=== PATIENT | female | born 2005 | race African-American/Black ===

== ENCOUNTER 2024-07-28 09:03 | Emergency (ER) | payer OTHER, SELFPAY ==
[2024-07-28 09:16] VITALS: BP 93/67; PULSE 67; RESP 16; TEMP 36; O2SAT 99
--- NOTE | 2024-07-28 09:40 | ED.ABDPAIN ---
HPI - Abdominal Pain General Chief Complaint: Abdominal Pain Stated Complaint: LEFT ABD PAIN Source: patient Mode of arrival: ambulatory Limitations: no limitations History of Present Illness HPI narrative: Patient presents for evaluation of left-sided abdominal pain. Symptom onset this morning upon waking for the day. She reports that the pain is sharp and stabbing. It radiates into the left lower back. She denies any nausea, vomiting, diarrhea constipation, urinary symptoms, vaginal bleeding or discharge. She was started on a new control on 07/15/2024. She does not consume ETOH. No history of similar symptoms. Related Data Home Medications Medication Instructions Recorded Confirmed norethindrone 1 mg-ethinyl 1 tablet PO DAILY 07/28/24 07/28/24 estradiol 10 mcg (24)-iron 10 mcg(2) tablet (Lo Loestrin Fe) Allergies Allergy/AdvReac Type Severity Reaction Status Date / Time No Known Allergies Allergy Verified 07/28/24 09:34 Review of Systems Review of Systems: CONSTITUTIONAL: Denies fever, chills, or sweats. EYES: Denies visual changes, redness, or discharge. ENT: Denies rhinorrhea, congestion, sore throat, or otalgia. CARDIOVASCULAR: Denies chest pain, palpitations, or edema. RESPIRATORY: Denies cough or dyspnea. GASTROINTESTINAL: reports left-sided abdominal pain. Denies nausea, vomiting, or diarrhea. GENITOURINARY: Denies dysuria or hematuria. SKIN: Denies rash or itching. MUSCULOSKELETAL: Denies back pain, joint pain, or myalgia. NEUROLOGIC: Denies headache, numbness, dizziness, or weakness. PSYCHIATRIC: Denies anxiety or depression. [facility] Past Medical History Medical History No pertinent past medical history Surgical History Surgical History No pertinent past surgical history Family History Family History Mother Family history non-contributory Social History Social History (Updated 07/28/24 @ 09:44 by SERJIO Ballard, ) Smoking status: Current every day smoker Tobacco type: e-cigarettes/vaping Alcohol intake: never Living arrangements: with family Gender identity (if verbalized by the patient): Female Spiritual care concerns: No Exam Narrative: GENERAL: Well-appearing, well-nourished, and in no acute distress. HEAD: Normocephalic, atraumatic. EYES: PERRLA and EOMI. ENT: Nares clear, no rhinorrhea or epistaxis. Mucous membranes moist. Oropharynx without tonsillar hypertrophy exudate or other lesions. Bilateral TMs pearly leong nonbulging NECK: Supple. No adenopathy or masses. No carotid bruits or JVD CHEST: Clear to auscultation. No respiratory distress. No wheezes rales or rhonchi HEART: Regular rate and rhythm. No murmur heard. Normal peripheral pulses. ABDOMEN: tenderness in the left upper quadrant without rebound or guarding. Soft, nondistended, normal active bowel sounds. EXTREMITIES: Normal range of motion. No edema. SKIN: Warm, dry, no rash. NEURO: No focal deficits. Alert and oriented x3. PSYCH: Normal mood and affect. Course Course Emergency Course: This is a 18-year-old female who presented for evaluation of abdominal pain. She was tender in LUQ. test here negative. She had some blood and protein in her urine. One consideration would be for kidney stones. I recommended she be transferred to the hospital for further evaluation. [facility] as her facility of choice. I contacted the emergency department at [place] and spoke with physician assistant food service director, Hunter London. who indicated the patient would be accepted for transfer into the ER at [place] by Dr. Stevens. Patient transferred via private vehicle Level of Care: Express Care Visit Vital Signs Vital signs: Vital Signs Temperature 36.0 C L 07/28/24 09:16 Pulse Rate 67 07/28/24 09:16 Respiratory Rate 16 07/28/24 09:16 Blood Pressure 93/67 L 07/28/24 09:16 Pulse Oximetry 99 07/28/24 09:16 Oxygen Delivery Room Air 07/28/24 09:16 Temperature 36.0 C L 07/28/24 09:16 Pulse Rate 67 07/28/24 09:16 Respiratory Rate 16 07/28/24 09:16 Blood Pressure 93/67 L 07/28/24 09:16 Pulse Oximetry 99 07/28/24 09:16 Oxygen Delivery Room Air 07/28/24 09:16 MDM - Abdominal Pain Lab Data Labs: Lab Results 07/28/24 07/28/24 Range/Units 09:47 09:48 POC Urine Color Yellow POC Urine Clarity Clear POC Urine pH 7.0 POC Ur Specif [place] 1.025 POC Urine Protein Trace (Negative) POC Ur Glucose (UA) Negative (Negative) POC Urine Ketones Negative (Negative) POC Urine Blood Trace (Negative) POC Urine Nitrite Negative (Negative) POC Urine Bilirubin Negative (Negative) POC Urine Urobilinogen 0.2 POC U Leukocyte Esteras Negative (Negative) POC Urine HCG, Qual Negative (Negative) Discharge Plan Discharge Clinical Impression: Abdominal pain Patient Disposition: Acute Care Hospital Condition: Stable Instructions: Abdominal Pain (ED) Patient Language: Armenian Prescriptions: No Action Lo Loestrin Fe 1 mg-10 mcg (24)/10 mcg (2) tablet 1 tablet PO DAILY Follow-up/Referrals: PHYSICIAN NOT ON STAFF,NONSTAFF [Primary Care Provider] - Time of Disposition: 10:07
[2024-07-28 09:51] LABS: BEDSIDEPREGUCG Negative (Negative)
[2024-07-28 09:51] LABS: EDUAAPPEAR Clear; EDUABILI Negative (Negative); EDUABLOOD Trace (Negative); EDUACOLOR1 Yellow; EDUAGLUCOSE Negative (Negative); EDUAKETONE Negative (Negative); EDUALEUKO Negative (Negative); EDUANITRATE Negative (Negative); EDUAPROTEIN Trace (Negative); EDUASPGRAVITY 1.025; EDUAUROBILI 0.2
== END 2024-07-28 10:21 | disposition short-term general hospital (02) ==
PROVIDERS: Emergency Provider Nurse Practitioner
DX: R10.32 Left lower quadrant pain (principal); F17.290 Nicotine dependence, other tobacco product, uncomplicated
CPT/HCPCS: 81003; 81025; 99202; G0463

== ENCOUNTER 2024-07-28 10:28 | Emergency (ER) | payer OTHER, SELFPAY ==
--- NOTE | ~2024-07-28 | CT_ITS ---
CT of the Abdomen and Pelvis: Indication: Abdominal pain Technique: 2.5 mm axial scans were obtained through the abdomen and pelvis following intravenous adm inistration of 100 cc of Omnipaque 350. Dose reduction technique was used on this scan by utilizing a utomated exposure control and iterative reconstruction technique. The dose-length product (DLP) was 1 87.80 mGy-cm. Findings: Scans through the lung bases are unremarkable. The liver, spleen, pancreas, gallbladder, adrenals and kidneys are within normal limits. No evidence of aortic aneurysm. No lymphadenopathy. No bowel obstruction or bowel wall thickening. There is no evidence to suggest acute appendicitis. Images through the pelvis were performed. Urinary bladder unremarkable. No pelvic mass seen. There is small amount of free fluid in the pelvis with mild infiltration of pelvic fat planes. Impression: Small amount of pelvic free fluid and infiltration of pelvic fat planes. Consider ovarian cyst ruptur e and/or pelvic inflammatory disease. Reviewed, dictated and finalized at location . CER Impression: Small amount of pelvic free fluid and infiltration of pelvic fat planes. Consid er ovarian cyst rupture and/or pelvic inflammatory disease.
[2024-07-28 10:42] VITALS: BP 110/58; PULSE 60; RESP 16; TEMP 36.4; O2SAT 100
[2024-07-28 10:56] LABS: Basophils Percent Auto 0.4 % (0.2-1.2); Eosinophils Percent Auto 0.8 % (0-4.4); Hematocrit 38.4 % (37.0-47.0); Hemoglobin 12.7 g/dL (12.0-15.0); Immature Granulocyte Absolute 0.01 K/mm3 (0.00-0.031); Immature Granulocyte Percent A 0.2 % (0-0.5); Lymphocytes Absolute Auto 1.37 K/mm3 (0.9-3.2); Mean Corpuscular HGB Conc 33.1 g/dl (32-36); Mean Corpuscular Hemoglobin 32.9 pg (26-34); Mean Corpuscular Volume 99.5 fl (80-100); Mean Platelet Volume 9.8 fl (7.4-10.4); Monocytes Absolute Auto 0.5 K/mm3 (0.1-0.6); Monocytes Percent Auto 8.9 % (2.6-8.5); Neutrophils Absolute Auto 3.2 K/mm3 (1.3-6.7); Neutrophils Percent Auto 62.7 % (45.5-73.1); Platelet Count Result 194 k/mm3 (150-375); Red Blood Count 3.86 M/mm3 (4.2-5.4); Red Cell Distribution Width 12.1 % (11.5-14.5); White Blood Count 5.1 K/mm3 (4.5-10.0)
[2024-07-28 11:17] LABS: Alanine Aminotransferase 16 U/L (6-35); Albumin Level 4.4 g/dL (3.7-5.6); Alkaline Phosphatase 71 U/L (45-116); Anion Gap 4 mmol/L (4-12); Aspartate Amino Transferase 26 U/L (14-36); Bilirubin,Total 0.5 mg/dL (0.2-1.3); Blood Urea Nitrogen 9 mg/dL (8-21); Calcium 9.5 mg/dL (8.9-10.7); Carbon Dioxide 28 mmol/L (22-30); Chloride 107 mmol/L (98-107); Estimated CRCL calculation 119 ml/min; Estimated Glomerular Filt Rate > 60; Glucose 71 mg/dL (65-110); Lipase 33 U/L (23-300); Potassium 3.7 mmol/L (3.4-5.0); Sodium 139 mmol/L (134-143)
--- NOTE | 2024-07-28 11:30 | ED_ITS ---
HPI - General Adult General Chief complaint: Abdominal Pain Stated complaint: abdominal pain Time Seen by Provider: 07/28/24 11:13 Source: patient Mode of arrival: ambulatory Limitations: no limitations History of Present Illness HPI narrative: This is a 18-year-old female who presents to the ED for chief complaint of left upper quadrant abdominal pain beginning this morning. Reports it does radiate into the left flank at times. States that she was seen in urgent care earlier who referred her over to check for kidney stones. Patient states that she has not had any urinary symptoms. Denies nausea, vomiting, diarrhea, fevers, chills. Related Data Home Medications Medication Instructions Recorded Confirmed norethindrone 1 mg-ethinyl 1 tablet PO DAILY 07/28/24 07/28/24 estradiol 10 mcg (24)-iron 10 mcg(2) tablet (Lo Loestrin Fe) Allergies Allergy/AdvReac Type Severity Reaction Status Date / Time No Known Allergies Allergy Verified 07/28/24 10:28 Review of Systems Review of Systems: All systems as dictated in [facility] Past Medical History Medical History No pertinent past medical history Surgical History Surgical History No pertinent past surgical history Family History Family History Mother Family history non-contributory Social History Social History (Updated 07/28/24 @ 09:44 by SERJIO Ballard, ) Smoking status: Current every day smoker Tobacco type: e-cigarettes/vaping Alcohol intake: never Living arrangements: with family Gender identity (if verbalized by the patient): Female Spiritual care concerns: No Exam Narrative: GENERAL: Well-appearing, well-nourished, and in no acute distress. HEAD: Normocephalic, atraumatic. EYES: PERRLA and EOMI. ENT: Nares clear, no rhinorrhea or epistaxis. Mucous membranes moist. Oropharynx without tonsillar hypertrophy exudate or other lesions. NECK: Supple. No adenopathy or masses. CHEST: No respiratory distress. Clear to auscultation. No wheezes rales or rhonchi HEART: Regular rate and rhythm. No murmur heard. Normal peripheral pulses. ABDOMEN: Left CVA tenderness present. Negative right flank tenderness. Soft, otherwise nontender, nondistended, normal active bowel sounds. MSK: Normal range of motion. No edema. SKIN: Warm, dry, no rash. NEURO: Alert and oriented x4. No focal deficits. PSYCH: Normal mood and affect. Course Reevaluation(s) Reevaluation #1: Patient is feeling much better on re-evaluation. She feels ready to go home. This CT was concern for possible PID and I asked if the patient had any concerns for STDs or any vaginal complaints. She is denying any of this. Date: 07/28/24 Time: 13:49 Vital Signs Vital signs: Vital Signs Temperature 97.6 F 07/28/24 10:42 Pulse Rate 60 07/28/24 10:42 Respiratory Rate 16 07/28/24 10:42 Blood Pressure 110/58 L 07/28/24 10:42 Pulse Oximetry 100 07/28/24 10:42 Oxygen Delivery Room Air 07/28/24 10:42 Temperature 97.9 F 07/28/24 13:30 Pulse Rate 55 L 07/28/24 13:30 Respiratory Rate 16 07/28/24 13:30 Blood Pressure 105/66 07/28/24 13:30 Pulse Oximetry 100 07/28/24 13:30 Oxygen Delivery Room Air 07/28/24 10:42 Medical Decision Making [facility] Narrative Medical decision making narrative: This is a 18-year-old female who presents to the ED for chief complaint of left- sided abdominal pain beginning earlier this morning. Vitals are normal. Exam shows mild tenderness to the left flank and left lower quadrant. Lab work unremarkable overall. No leukocytosis. Urinalysis shows 1+ bacteria but otherwise is negative for markers of infection CT abdomen pelvis with IV contrast: Impression: Small amount of pelvic free fluid and infiltration of pelvic fat planes. Consider ovarian cyst rupture and/or pelvic inflammatory disease. Patient is well-appearing and feels much better on re-evaluation. Presentation is most likely consistent with ovarian cyst rupture. She has no concerns for STD or vaginal symptoms that could be causing a PID. Patient will be discharged in stable condition. Supportive measures discussed and return precautions given. Patient is understanding and agreeable with plan for discharge with PCP follow-up. Vital Signs Vital Signs: Vital Signs Temperature 97.6 F 07/28/24 10:42 Pulse Rate 60 07/28/24 10:42 Respiratory Rate 16 07/28/24 10:42 Blood Pressure 110/58 L 07/28/24 10:42 Pulse Oximetry 100 07/28/24 10:42 Oxygen Delivery Room Air 07/28/24 10:42 Temperature 97.9 F 07/28/24 13:30 Pulse Rate 55 L 07/28/24 13:30 Respiratory Rate 16 07/28/24 13:30 Blood Pressure 105/66 07/28/24 13:30 Pulse Oximetry 100 07/28/24 13:30 Oxygen Delivery Room Air 07/28/24 10:42 Lab Data 07/28/24 10:49 07/28/24 10:49 Labs: Lab Results 07/28/24 07/28/24 07/28/24 Range/Units 10:49 11:43 12:00 WBC 5.1 (4.5-10.0) K/mm3 RBC 3.86 L (4.2-5.4) M/mm3 Hgb 12.7 (12.0-15.0) g/dL Hct 38.4 (37.0-47.0) % MCV 99.5 (80-100) fl MCH 32.9 (26-34) pg MCHC 33.1 (32-36) g/dl RDW 12.1 (11.5-14.5) % Plt Count 194 (150-375) k/mm3 MPV 9.8 (7.4-10.4) fl Immature Gran % (Auto) 0.2 (0-0.5) % Neut % (Auto) 62.7 (45.5-73.1) % Lymph % (Auto) 27.0 (18.3-44.2) % [place] % (Auto) 8.9 H (2.6-8.5) % Eos % (Auto) 0.8 (0-4.4) % Baso % (Auto) 0.4 (0.2-1.2) % Lymph # (Auto) 1.37 (0.9-3.2) K/mm3 [place] # (Auto) 0.5 (0.1-0.6) K/mm3 Eos # (Auto) 0.0 (0-0.3) K/mm3 Baso # (Auto) 0.0 (0.0-0.1) K/mm3 Abs Immat Gran (auto) 0.01 (0.00-0.031) K/mm3 Absolute Neuts (auto) 3.2 (1.3-6.7) K/mm3 Absolute Nucleated RBC 0.000 (0.0-0.012) K/mm3 Nucleated RBC % 0.0 (0.0-0.2) % Sodium 139 (134-143) mmol/L Potassium 3.7 (3.4-5.0) mmol/L Chloride 107 (98-107) mmol/L Carbon Dioxide 28 (22-30) mmol/L Anion Gap 4 (4-12) mmol/L BUN 9 (8-21) mg/dL Creatinine 0.60 L (0.7-1.0) mg/dL Estim Creat Clear Calc 119 ml/min Estimated GFR > 60 (59 - ) Glucose 71 (65-110) mg/dL Calcium 9.5 (8.9-10.7) mg/dL Total Bilirubin 0.5 (0.2-1.3) mg/dL AST 26 (14-36) U/L ALT 16 (6-35) U/L Alkaline Phosphatase 71 (45-116) U/L Total Protein 7.0 (6.3-8.6) g/dL Albumin 4.4 (3.7-5.6) g/dL Lipase 33 (23-300) U/L Urine Color Yellow (Yellow) Urine Appearance Cloudy H (Clear) Urine pH 7.5 (5.0-9.0) Ur Specific [place] 1.017 (1.001-1.035) Urine Protein Negative (Negative) mg/dL Urine Glucose (UA) Negative (Negative) mg/dL Urine Ketones Negative (Negative) mg/dL Ur Blood (Man) Negative (Negative) Urine Nitrate Negative (Negative) Urine Bilirubin Negative (Negative) Urine Urobilinogen 1.0 (<2.0) mg/dL Leukocyte Esterase Rfl Negative (Negative) ARACELI/UL Urine RBC 0-2 (0-2) /hpf Urine WBC 0-5 (0-3) /hpf Ur Squamous Epith Cells Moderate (Few) /hpf Urine Bacteria 1+ H /hpf Urine Casts 0-2 POC Urine HCG, Qual Negative (Negative) Discharge Plan Discharge Clinical Impression: Ovarian cyst rupture Patient Disposition: Home, Self-Care Condition: Stable Instructions: Antibiotic Form, Ruptured Ovarian Cyst (ED) Additional Instructions: Your exam and imaging today show evidence of possible ovarian cyst rupture. This should self resolve over the next day or so. Follow-up with PCP. If you have any new or worsening symptoms please return to the ER for further evaluation. Prescriptions: No Action Lo Loestrin Fe 1 mg-10 mcg (24)/10 mcg (2) tablet 1 tablet PO DAILY Follow-up/Referrals: PHYSICIAN NOT ON STAFF,NONSTAFF [Non-Staff] - Stand Alone Forms: Work/School Release IP Time of Disposition: 13:50
[2024-07-28 12:03] LABS: Add Urine Microscopic? YES; Appearance Urine Cloudy (Clear); Bacteria Urine 1+ /hpf; Bilirubin Urine Negative (Negative); Blood Urine Negative (Negative); Color Urine Yellow (Yellow); Glucose Urine UA Negative (Negative); Ketones Urine Negative (Negative); Leukocyte Esterase Ur Negative LEU/UL (Negative); Nitrate Urine Negative (Negative); Non Pathogenic Casts 0-2; Protein Urine Negative (Negative); RBC Urine 0-2 /hpf (0-2); Specific Grav Ur 1.017 (1.001-1.035); Squamous Epithelial Cell Urine Moderate /hpf (Few); WBC Urine 0-5 /hpf (0-3); pH Urine 7.5 (5.0-9.0)
[2024-07-28] MEDS: ONDANSETRON INJ 4 MG/2 ML VIAL IV PUSH (12:06)
[2024-07-28] MEDS: MORPHINE SULFATE (*CRX) 4 MG/ML INJ IV PUSH (12:06)
[2024-07-28 12:13] VITALS: BP 100/58; PULSE 55; RESP 16; O2SAT 99
[2024-07-28 12:14] LABS: BEDSIDEPREGUCG Negative (Negative)
[2024-07-28 13:30] VITALS: BP 105/66; PULSE 55; RESP 16; TEMP 36.6; O2SAT 100
== END 2024-07-28 14:54 | disposition home or self-care (01) ==
PROVIDERS: Emergency Provider Physician Assistant
DX: N83.209 Unspecified ovarian cyst, unspecified side (principal); F17.290 Nicotine dependence, other tobacco product, uncomplicated; Z79.3 Long term (current) use of hormonal contraceptives
CPT/HCPCS: 36415; 74177; 80053; 81001; 81025; 83690; 85025; 96374; 96375; 99284; J2270; J2405; Q9967